=== PATIENT | male | born 1950 | race Caucasian/White ===

== ENCOUNTER 2021-10-16 17:51 | Inpatient (IN) | payer MEDICARE, OTHER ==
[~2021-10-16] VITALS: Ht 177.8 cm; Wt 71.2 kg
--- NOTE | 2021-10-16 17:55 | NUR ---
[facility],WORSENING SOB X 45 MINUTES,ON CPAP UPON ARRIVAL. PLACED COMFORTABLY IN BED. PATIENT CAME ALREADY ATTACHED TO CPAP. WITH AUTOMATIC ATRIAL DEFIBRILLATOR ON LEFT CHEST.WITH IV CANNULA G18 ON LEFT AC. PATIENT IS ON RESPIRATORY DISTRESS. ATTACHED TO MONITOR. ATTACHED TO BIPAP. WILL CONTINUE TO MONITOR VITALS.
[2021-10-16] MEDS ORDERED: NTG 50 MG/D5W250 ML BOTTL 250 ML IV ONE ×2 (18:00→18:04)
[2021-10-16] MEDS ORDERED: ENALAPRILAT DIHYD. (2.5MG/2ML) 1.25 MG/ML VIAL IV ONE (18:00)
--- NOTE | 2021-10-16 18:00 | NUR ---
CXR PORTABLE DONE AT BEDSIDE.
[2021-10-16] MEDS ORDERED: ENALAPRILAT INJ (1.25 MG/ML) 1.25 MG/ML VIAL IV ONE (18:04)
[2021-10-16] MEDS ORDERED: CARV3.122 PO (18:09)
[2021-10-16] MEDS ORDERED: POTA10TA10 PO (18:09)
[2021-10-16] MEDS ORDERED: ATOR40TA PO (18:09)
[2021-10-16] MEDS ORDERED: FAMO20TA8 PO (18:09)
[2021-10-16] MEDS ORDERED: ASPI-1420 PO (18:09)
[2021-10-16] MEDS ORDERED: ENOX30DI SQ (18:09)
[2021-10-16] MEDS ORDERED: POLY17PO4 PO (18:09)
[2021-10-16] MEDS ORDERED: NITR0.4T48 SL (18:09)
[2021-10-16] MEDS ORDERED: ALPR0.255 PO (18:09)
[2021-10-16] MEDS ORDERED: CLOP75TA15 PO (18:09)
[2021-10-16] MEDS ORDERED: FURO40TA5 PO (18:09)
[2021-10-16] MEDS ORDERED: LOSA25TA27 PO (18:09)
[2021-10-16] MEDS ORDERED: TAMS-12 PO (18:09)
[2021-10-16] MEDS ORDERED: DIGO125T PO (18:09)
--- NOTE | 2021-10-16 18:15 | NUR ---
COVID SWAB DONE AND SENT TO LAB
[2021-10-16 18:17] LABS: BASOPHILS # (AUTO) 0.1 K/uL (0.0-0.2); EOSINOPHILS % (AUTO) 5.4 % (0.0-6.0); HEMATOCRIT 45 % (39-51); HEMOGLOBIN 15.2 g/dL (13.5-17.5); LYMPHOCYTES # (AUTO) 3.5 K/uL (0.8-4.8); MEAN CORPUSCULAR HGB CONC 34 g/dl (31.0-36.0); MEAN CORPUSCULAR VOLUME 91 fL (80-96); MONOCYTES # (AUTO) 1.2 K/uL (0.1-1.30); MONOCYTES % (AUTO) 11.8 % (2.0-12.0); NEUTROPHILS # (AUTO) 5.2 K/uL (1.8-8.9); NEUTROPHILS % (AUTO) 48.8 % (43.0-81.0); PLATELET COUNT (AUTO) 201 K/uL (150-450); RED BLOOD CELL COUNT(AUTO) 4.92 MIL/uL (4.5-6.0); WHITE BLOOD COUNT (AUTO) 10.6 K/uL (4.3-11.0)
--- NOTE | 2021-10-16 18:30 | NUR ---
DR. BOCANEGRA MADE AWARE. HE SAID TO HOLD THE DRIP. HR 81bpm, SPO2 98%.
--- NOTE | 2021-10-16 18:30 | NUR ---
NITROGLYCERIN DRIP ORDERED NOT STARTED. VS BP 97/57mmHg.
[2021-10-16 18:32] LABS: CALCIUM, SERUM 8.9 mg/dL (8.5-10.1); CARBON DIOXIDE 27 mmol/L (21-32); CHLORIDE 103 mmol/L (98-107); CREATININE 1.6 mg/dL (0.6-1.3); GLUCOSE 190 mg/dL (74-106); POTASSIUM 3.8 mmol/L (3.5-5.1); SODIUM SERUM 138 mmol/L (136-145); UREA NITROGEN, BLOOD 28 mg/dL (7-18)
--- NOTE | 2021-10-16 18:36 | NUR ---
BLOOD DRAWN AND SENT TO LAB
[2021-10-16 18:45] LABS: ALANINE AMINOTRANSFERASE 20 U/L (12-78); ALBUMIN 3.5 g/dL (3.4-5.0); ALKALINE PHOSPHATASE 158 U/L (46-116); ASPARTATE AMINOTRANSFERASE 17 U/L (15-37); BILIRUBIN,DIRECT 0.1 mg/dL (0.0-0.2); BILIRUBIN,TOTAL 0.5 mg/dL (0.2-1.0); TOTAL PROTEIN, SERUM 7.9 g/dL (6.4-8.2)
[2021-10-16] MEDS ORDERED: ENOXAPARIN SODIUM 80 MG/0.8 ML DISP.SYRIN SQ ONE ×3 (19:00→23:30)
--- NOTE | 2021-10-16 19:16 | NUR ---
PATIENT IS BEING DIFFICULT. HE SAID HE WANTS TO DEFECATE, OFFERED HIM BEDPAN BUT REFUSED. HE WANTS TO USE THE BEDSIDE COMMODE. EXPLAINED TO PATIENT THAT VITALS AND BP IS NOT STABLE AT THE MOMENT. HE NEEDS TO USE BEDPAN IF HE WANTS TO DO IT NOW. BP 93/50mmHg
[2021-10-16 19:24] LABS: ABG BASE EXCESS -1.2 mmol/L; ABG PCO2 39.7 mmHg (35.0-45.0); ABG PH 7.391 (7.350-7.450); ABG PO2 164.3 mmHg (75.0-100.0); COHb 3.3 % (0.5-1.5); MetHb 0.3 % (0.0-1.5); O2Hb 95.2 % (94.0-97.0); SITE, ABG Right Brachial; VENT MODE, BG S/T 16 15/5 50%
--- NOTE | 2021-10-16 20:21 | NUR ---
TROP [id number]
--- NOTE | 2021-10-16 20:24 | NUR ---
PATIENT WAS WEANED OFF FROM THE BIPAP, HOWEVER HE'S REFUSING TO BE ON SUPPLEMENTAL O2 EITHER VIA NASAL CANULA OR MASK. PATIENT IS HOLDING O2 SAT OF 90-95% ON R/A AT THIS TIME, WILL CONTINUE TO MONITOR
--- NOTE | 2021-10-16 20:54 | NUR ---
OPAL COLEY ([facility]) [phone]
--- NOTE | 2021-10-16 21:10 | NUR ---
REPORT GIVEN TO RAQUEL ACE
--- NOTE | 2021-10-16 21:35 | NUR ---
DR BOCANEGRA AT THE BED SIDE SPEAKING TO THE PATIENT
--- NOTE | 2021-10-16 21:45 | NUR ---
STUDIO OWNER NOTES PT ARRIVED VIA GURNEY ACCOMPANIED BY RN AND EMT @ 0117. AOx4, ABLE TO MAKE NEEDS KNOWN. ON SIMPLE MASK FOR 4LPM AND TOLERATING WELL. NO SOB NOTED. NO S/SX OF RESPIRATORY DISTRESS NOTED. TELE MONITOR ON. IV ACCESS IN LAC #18G. IV IS INTACT, PATENT, AND FLUSHING WELL. SAFETY PRECAUTIONS IN PLACE: BED IN LOWEST, LOCKED POSITION, SIDERAILS UPx2, AND BRAKES ON. TABLE AND CALL LIGHT WITHIN REACH. WILL CONTINUE TO MONITOR.
--- NOTE | 2021-10-16 22:23 | NUR ---
TRANSFERRED PATIENT TO [facility] VIA STRETCHER.
[2021-10-16 22:45] VITALS: BP 124/71
[2021-10-16] MEDS ORDERED: ALPRAZOLAM 0.25 MG TABLET PO PRN (23:30)
[2021-10-16] MEDS ORDERED: ACETAMINOPHEN 325 MG TABLET PO PRN (23:30)
[2021-10-16] MEDS ORDERED: ONDANSETRON HCL/PF 4 MG/2 ML VIAL IVP PRN (23:30)
--- NOTE | 2021-10-17 00:17 | NUR ---
RN NOTES PT WANTS TO AMBULATE AROUND UNIT. EXPLAINED TO PATIENT THAT HE HAS SHORTNESS OF BREATH AND HE SHOULD NOT BE WALKING. PT DID NOT LISTEN AND STILL WALKS AROUND. 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
[2021-10-17] MEDS ORDERED: FUROSEMIDE 40 MG/4 ML VIAL IV ONE (00:30)
--- NOTE | 2021-10-17 03:40 | NUR ---
0340 Critical troponin result 1647 reported to JOHN Garcia with no order given. Patient currently on Lovenox per pharmacy dosing. He's sleeping at this time. No complain of chest pain.
--- NOTE | 2021-10-17 06:47 | NUR ---
RN CLOSING NOTES PT IN BED, ASLEEP, AWAKENS TO VERBAL STIMULI. AOx4, ABLE TO MAKE NEEDS KNOWN. ON SIMPLE MASK FOR 4LPM AND TOLERATING WELL. NO SOB NOTED. NO S/SX OF RESPIRATORY DISTRESS NOTED. TELE MONITOR DETECTS SR WITH BBB AND V-PACING. IV ACCESS IN LAC #18G. IV IS INTACT, PATENT, AND FLUSHING WELL. ALL ORDERS CARRIED OUT. ALL NEEDS MET. PT KEPT CLEAN AND DRY. SAFETY PRECAUTIONS IN PLACE: BED IN LOWEST, LOCKED POSITION, SIDERAILS UPx2, AND BRAKES ON. TABLE AND CALL LIGHT WITHIN REACH. WILL ENDORSE TO ONCOMING SHIFT FOR KIA.
--- NOTE | 2021-10-17 07:20 | NUR ---
RN NOTE RECEIVED PATIENT IN BED RESTING ALERT ORIENTED X4 VERBALLY RESPONSIVE ON 4L OXYGEN VIA SIMPLE MASK O2:93% IV SITE IS ON LEFT AC INTACT PATENT,CONTINET BOWEL/BLADDER SAFETY MEASURE IMPLEMENT BED IN LOW POSITION AND LOCKED,HEAD OF THE BED ELEVATED,CONTINUE TO MONITOR.
[2021-10-17] MEDS: FUROSEMIDE 40 MG/4 ML VIAL IV SCH ×3 (08:00→12:13)
[2021-10-17 08:28] LABS: BASOPHILS # (AUTO) 0.1 K/uL (0.0-0.2); BASOPHILS % (AUTO) 0.6 % (0.0-2.0); EOSINOPHILS % (AUTO) 3.1 % (0.0-6.0); HEMATOCRIT 38 % (39-51); HEMOGLOBIN 12.9 g/dL (13.5-17.5); LYMPHOCYTES # (AUTO) 2.1 K/uL (0.8-4.8); LYMPHOCYTES % (AUTO) 27.3 % (20.0-44.0); MEAN CORPUSCULAR HGB CONC 34 g/dl (31.0-36.0); MEAN CORPUSCULAR VOLUME 91 fL (80-96); MONOCYTES # (AUTO) 1.1 K/uL (0.1-1.30); MONOCYTES % (AUTO) 13.8 % (2.0-12.0); NEUTROPHILS # (AUTO) 4.3 K/uL (1.8-8.9); NEUTROPHILS % (AUTO) 55.2 % (43.0-81.0); PLATELET COUNT (AUTO) 153 K/uL (150-450); RED BLOOD CELL COUNT(AUTO) 4.19 MIL/uL (4.5-6.0); WHITE BLOOD COUNT (AUTO) 7.9 K/uL (4.3-11.0)
[2021-10-17] MEDS: CARVEDILOL 3.125 MG TABLET PO SCH ×2 (09:00→17:00)
--- NOTE | 2021-10-17 09:00 | NUR ---
RN NOTE BP 91/50 HR 71 COREG 3.125 NOT GIVEN AT 0900 CONTINUE TO MONITOR.
[2021-10-17] MEDS: ASPIRIN EC 81 MG TABLET.DR PO SCH (09:04)
[2021-10-17] MEDS: CLOPIDOGREL BISULFATE 75 MG TABLET PO SCH (09:04)
[2021-10-17] MEDS: DIGOXIN 0.125 MG TABLET PO SCH (09:04)
[2021-10-17] MEDS: FAMOTIDINE (20 MG) 20 MG TABLET PO SCH ×2 (09:04→21:22)
[2021-10-17] MEDS: TAMSULOSIN 0.4 MG CAP.SR.24H PO SCH (09:04)
[2021-10-17] MEDS: ENOXAPARIN SODIUM 80 MG/0.8 ML DISP.SYRIN SQ SCH ×2 (09:05→21:24)
[2021-10-17] MEDS ORDERED: IPRATROPIUM NEB FS 0.5 MG/2.5 ML AMPUL.NEB NEB PRN (09:30)
[2021-10-17 09:41] LABS: BILIRUBIN,TOTAL 0.6 mg/dL (0.2-1.0); CALCIUM, SERUM 8.9 mg/dL (8.5-10.1); CREATININE 1.3 mg/dL (0.6-1.3); POTASSIUM 3.6 mmol/L (3.5-5.1)
[2021-10-17 09:42] LABS: ALBUMIN 3.1 g/dL (3.4-5.0); MAGNESIUM 1.8 mg/dL (1.8-2.4); TOTAL PROTEIN, SERUM 6.3 g/dL (6.4-8.2)
[2021-10-17 09:45] LABS: ABG OXYGEN SATURATION 98.7 % (92.0-98.5); ABG PCO2 34.3 mmHg (35.0-45.0); ABG PH 7.467 (7.350-7.450); ABG PO2 138.7 mmHg (75.0-100.0); AaDO2 135.9 mmHg; COHb 1.3 % (0.5-1.5); MetHb 0.2 % (0.0-1.5); O2Hb 97.2 % (94.0-97.0); SITE, ABG Right Radial; VENT MODE, BG SIMPLE MASK
[2021-10-17 10:13] LABS: PHOSPHORUS 3.7 mg/dL (2.5-4.9)
[2021-10-17 14:35] LABS: CHOLESTEROL 153 mg/dL (<200); HDL CHOLESTEROL 61 mg/dL (40-60); LDL 82 mg/dL (0-99); TRIGLYCERIDES 42 mg/dL (30-150)
[2021-10-17] MEDS ORDERED: POLYETHYLENE GLYCOL 3350 17 GM POWD.PACK PO PRN (16:30)
--- NOTE | 2021-10-17 17:00 | NUR ---
RN NOTE BP IS 91/60 HR 60 GOREG 3.125MG NOT GIVEN AT 1700 CONTINUE TO MONITOR.
--- NOTE | 2021-10-17 18:27 | NUR ---
RN NOTE PATIENT REMAINS ALERT ORIENTED X4 VERBALLY RESPONSIVE ON 3L OXYGEN VIA NASAL CANNULA O2:98% NO SOB NOTA CUTE DISTRESS NOTED IV SITE IS ON LEFT AC INTACT PATENT ENDORSE NEXT COMING SHIFT FOR CONTINUATION OF CARE.
--- NOTE | 2021-10-17 19:35 | NUR ---
RN OPENING NOTES RECEIVED PT SITTING ON THE CHAIR, AWAKE, A/Ox4 AND VERBALLY RESPONSIVE. ABLE TO MAKE NEEDS KNOWN. ON SIMPLE MASK FOR 4L/M AND TOLERATING WELL. BREATHING EVEN AND UNLABORED. IV ACCESS IN LAC #18G. INTACT AND PATENT. NO S/S OF INFILTRATIONS. NO C/O PAIN OR DISCOMFORT. NO ACUTE DISTRESS. ALL SAFETY MEASURES IN PLACE. BED IN LOWEST POSITION AND LOCKED. SIDERAILS UP X2, PLACE CALL LIGHT WITH IN REACH. WILL CONTINUE TO MONITOR
[2021-10-17 20:00] VITALS: BP 109/64
[2021-10-17] MEDS: ATORVASTATIN 40 MG TABLET PO SCH (21:22)
--- NOTE | 2021-10-18 00:04 | NUR ---
RN NOTES: PT STRONGLY REFUSED TO TAKE HIS VITAL SIGN AT 12AM. EXPLAINED THE RISK AND BENEFITS BUT REFUSED, MENTIONED DON'T WAKE ME UP TO CHECK VITAL SIGNS. WILL CONTINUE TO MONITOR
[2021-10-18 04:00] VITALS: BP 94/58
--- NOTE | 2021-10-18 06:38 | NUR ---
RN CLOSING NOTES PATIENT IN BED SLEEPING, BUT EASILY AROUSABLE, A/Ox4 AND VERBALLY RESPONSIVE. ABLE TO MAKE NEEDS KNOWN. ON SIMPLE MASK FOR 4L/M AND TOLERATING WELL. O2 SAT 96%. HAS EPISODES OF REMOVING MASK. BREATHING EVEN AND UNLABORED. IV ACCESS IN LAC #18G. INTACT AND PATENT. NO S/S OF INFILTRATIONS. NO C/O PAIN OR DISCOMFORT. NO ACUTE DISTRESS. ALL DUE MEDS GIVEN ORDERED. ALL SAFETY MEASURES IN PLACE. BED IN LOWEST POSITION AND LOCKED. SIDERAILS UP X2, PLACE CALL LIGHT WITH IN REACH. WILL ENDORSE TO MORNING SHIFT NURSE.
[2021-10-18 07:07] LABS: BASOPHILS # (AUTO) 0.1 K/uL (0.0-0.2); BASOPHILS % (AUTO) 0.8 % (0.0-2.0); EOSINOPHILS % (AUTO) 4.4 % (0.0-6.0); HEMATOCRIT 37 % (39-51); HEMOGLOBIN 12.8 g/dL (13.5-17.5); LYMPHOCYTES % (AUTO) 29.9 % (20.0-44.0); MEAN CORPUSCULAR HGB CONC 34 g/dl (31.0-36.0); MEAN CORPUSCULAR VOLUME 91 fL (80-96); MONOCYTES # (AUTO) 0.9 K/uL (0.1-1.30); MONOCYTES % (AUTO) 13.9 % (2.0-12.0); NEUTROPHILS # (AUTO) 3.4 K/uL (1.8-8.9); PLATELET COUNT (AUTO) 145 K/uL (150-450); WHITE BLOOD COUNT (AUTO) 6.6 K/uL (4.3-11.0)
--- NOTE | 2021-10-18 07:16 | NUR ---
RN OPENING NOTES RECEIVED PT ASLEEP ON THE BED. ON SIMPLE MASK AT 4L PER MINUTE AND TOLERATING WELL. BREATHING EVEN AND UNLABORED. IV ACCESS IN LAC #18G. INTACT AND PATENT. NO S/S OF INFILTRATIONS. NO C/O PAIN OR DISCOMFORT. NO ACUTE DISTRESS. ALL SAFETY MEASURES IN PLACE. BED IN LOWEST POSITION AND LOCKED. SIDERAILS UP X2, PLACE CALL LIGHT WITH IN REACH.
[2021-10-18 07:25] LABS: BILIRUBIN,TOTAL 0.7 mg/dL (0.2-1.0); CREATININE 1.2 mg/dL (0.6-1.3); PHOSPHORUS 3.4 mg/dL (2.5-4.9); POTASSIUM 3.8 mmol/L (3.5-5.1); TOTAL PROTEIN, SERUM 6.5 g/dL (6.4-8.2)
--- NOTE | 2021-10-18 07:25 | NUR ---
RN NOTE RECEIVED CRITICAL LAB OF TROPONIN 1406. YESTERDAYS TROPONIN READINGS WERE [id number]. PATIENT IS CURRENTLY ON ASPIRIN AND LOVENOX DR HOLDEN MADE AWARE NO FURTHER ORDERS.
[2021-10-18 08:00] VITALS: BP 129/80
[2021-10-18] MEDS: CARVEDILOL 3.125 MG TABLET PO SCH ×4 (09:00→22:14)
[2021-10-18] MEDS: DIGOXIN 0.125 MG TABLET PO SCH (09:12)
[2021-10-18] MEDS: TAMSULOSIN 0.4 MG CAP.SR.24H PO SCH (09:13)
[2021-10-18] MEDS: FAMOTIDINE (20 MG) 20 MG TABLET PO SCH ×2 (09:13→21:46)
[2021-10-18] MEDS: FUROSEMIDE 40 MG/4 ML VIAL IV SCH ×4 (09:13→16:06)
[2021-10-18] MEDS: ASPIRIN EC 81 MG TABLET.DR PO SCH (09:13)
[2021-10-18] MEDS: POTASSIUM CHLORIDE 20 MEQ TAB.PRT.SR PO SCH ×3 (09:13→11:35)
[2021-10-18] MEDS: CLOPIDOGREL BISULFATE 75 MG TABLET PO SCH (09:13)
[2021-10-18] MEDS: ENOXAPARIN SODIUM 40 MG/0.4 ML DISP.SYRIN SQ SCH (10:29)
[2021-10-18 11:09] LABS: CALCIUM, SERUM 9.5 mg/dL (8.5-10.1)
[2021-10-18 11:10] LABS: MAGNESIUM 2.1 mg/dL (1.8-2.4)
--- NOTE | 2021-10-18 11:21 | NUR ---
RN NOTE DR. PADILLA Hemphill AT PATIENTS BEDSIDE RECEIVED ORDER TO PLACE RX FOR NICOTINE PATCH 14MG TD QDAILY.ORDERS PLACED
[2021-10-18] MEDS: NICOTINE PATCH (14MG) 14 MG PATCH.TD24 TD SCH (11:35)
[2021-10-18 12:00] VITALS: BP 110/70
--- NOTE | 2021-10-18 12:00 | NUR ---
RN NOTE PATIENT REFUSES TO USE OUR VITALS SIGN MACHINE, PATIENT HAS HIS OWN BLOOD PRESSURE/HEART RATE MACHINE AND WISHES TO USE HIS OWN. PER PATIENT HE RATHER USE HIS OWN IT IS MORE ACCURATE. PATIENT CALLED RN TO ROOM TO INFORM A HEART RATE OF 44BPM ON HIS MACHINE. INFORMED PATIENT HE IS ON A SOCIAL MEDIA EXECUTIVE AND CURRENT READING 78BPM. EXPLAINED TO PATIENT HE IS ON CONTINUOUS CARDIAC MONITORING. NO FURTHER QUESTIONS.
--- NOTE | 2021-10-18 12:42 | NUR ---
RN NOTE RECIEVED ORDER FROM DR CAUSEY TO PLACE ORDER FOR PSYCH CONSULT. ORDERS FOLLOWED
--- NOTE | 2021-10-18 13:06 | NUR ---
PER DR. OLIVO SHE WILL SEE PATIENT IN AM.
--- NOTE | 2021-10-18 14:00 | NUR ---
RN NOTE PATIENTS NICOTINE PATCH WAS RETURNED TO [facility] DUE TO PATIENT DECIDING HE DID NOT WANT IT THROUGH OUT THE DAY.
[2021-10-18 16:00] VITALS: BP 96/62
--- NOTE | 2021-10-18 16:00 | NUR ---
RN NOTE PATIENTS BLOOD PRESSURE NOTED TO BE 94/62 MANUAL READING WITH HR OF 84. PATIENT HAD THE LAST DOSE OF LASIX DUE. INFORMED DR HOLDEN OF READING PER DOCTOR HOLD MEDICATION. ORDERS FOLLOWED.
--- NOTE | 2021-10-18 17:00 | NUR ---
RN NOTE PATIENTS 1700 COREG MEDICATION NOT ADMINISTERED PATIENT RECEIVED LASIX AND WAS CONCERN OF BLOOD PRESSURE DROPPING. PATIENT DISCUSSED HOLD MEDICATION FOR NOW
--- NOTE | 2021-10-18 17:35 | NUR ---
RN NOTE PER PATIENTS REQUEST BLOOD PRESSURE WAS TAKEN AGAIN WITH READING OF 105/75 HR 65. PATIENT IS REQUESTING LAST DOSE OF LASIX
[2021-10-18] MEDS ORDERED: FUROSEMIDE 40 MG/4 ML VIAL IV SCH (18:00)
--- NOTE | 2021-10-18 18:36 | NUR ---
RN NOTE PATIENTS IV NOTED TO BE INFILTRATED, PER PATIENT HE IS A HARD DRAW AND DISCUSSED ICU EXPERIENCED NURSE WOULD BE APPROPRIATE FOR PLACEMENT, ICU CHARGE NURSE MADE AWARE.
--- NOTE | 2021-10-18 18:41 | NUR ---
RN CLOSING NOTES PATIENT SITTING IN CHAIR A/Ox4 AND VERBALLY RESPONSIVE. ABLE TO MAKE NEEDS KNOWN. PATIENT IS ON ROOM AIR CURRENTLY O2 SAT 96%. PER PATENTS REQUEST HE WANTS FACE MASK AT BED SIDE FOR WHEN HE FEELS SOB DURING MY SHIT PATIENT DID NOT REPORT SOB. O2 SAT 96%. PATIENTS LEFT ARM IV SITE NOTED TO BE INFILTRATED PENDING PLACEMENT FROM A ICU NURSE, ICU CHARGE NURSE MADE AWARE. CURRENTLY PATIENT HAS NO C/O PAIN OR DISCOMFORT. NO ACUTE DISTRESS. ALL SAFETY MEASURES IN PLACE. BED IN LOWEST POSITION AND LOCKED. SIDE RAILS UP X2, PLACE CALL LIGHT WITH IN REACH. WILL ENDORSE TO IGNITION SPECIALIST NURSE.
--- NOTE | 2021-10-18 19:30 | NUR ---
BLACK TOP ROLLER OPENING NOTES RECEIVED PATIENT SITTING IN CHAIR, A/O x 4, VERBALLY RESPONSIVE. ABLE TO MAKE NEEDS KNOWN. ON ROOM AIR , TOLERATING WELL, SATING AT 98%. PER PATIENT'S REQUEST, HE WANTS FACE MASK AT BEDSIDE FOR WHEN HE FEELS SOB DURING MY SHIFT. PT NO IV ACCESS, PENDING PLACEMENT FROM AN ICU NURSE, PER PATIENT'S REQUEST. ICU CHARGE NURSE MADE AWARE. CURRENTLY PATIENT HAS NO C/O PAIN OR DISCOMFORT. PT ALSO USES HIS OWN BP MACHINE TO TAKE HIS BP/PULSE. ALL SAFETY MEASURES IN PLACE. BED IN LOWEST POSITION AND LOCKED. SIDE RAILS UP X2, CALL LIGHT WITHIN REACH. WILL CONTINUE TO MONITOR.
[2021-10-18 20:00] VITALS: BP 134/71
[2021-10-18] MEDS: ATORVASTATIN 40 MG TABLET PO SCH (21:47)
--- NOTE | 2021-10-18 22:20 | NUR ---
RN NOTE PT ASKED FOR HIS COREG MEDS TO BE GIVEN, WHICH WAS INITIALLY PUT ON HOLD BY THE PT TODAY AT 1700 SINCE HE SAID HE DIDN'T WANT TO TAKE IT AFTER GETTING LASIX. AT 2200 TODAY, HE WANTED TO TAKE IT AFTER HIS BP REGISTERED AT 134/71 WITH A PULSE OF 83. ASKED CHARGE NURSE HDAVAL IF I COULD GIVE IT, AND SAID OK.
[2021-10-19] VITALS: BP 115/71
[2021-10-19 04:00] VITALS: BP 125/75
[2021-10-19 07:25] LABS: BASOPHILS % (AUTO) 0.8 % (0.0-2.0); EOSINOPHILS % (AUTO) 4.5 % (0.0-6.0); HEMATOCRIT 38 % (39-51); LYMPHOCYTES # (AUTO) 1.6 K/uL (0.8-4.8); LYMPHOCYTES % (AUTO) 26.6 % (20.0-44.0); MEAN CORPUSCULAR HGB CONC 34 g/dl (31.0-36.0); MEAN CORPUSCULAR VOLUME 91 fL (80-96); MONOCYTES % (AUTO) 16.6 % (2.0-12.0); NEUTROPHILS % (AUTO) 51.5 % (43.0-81.0); PLATELET COUNT (AUTO) 153 K/uL (150-450); RED BLOOD CELL COUNT(AUTO) 4.18 MIL/uL (4.5-6.0); WHITE BLOOD COUNT (AUTO) 5.9 K/uL (4.3-11.0)
--- NOTE | 2021-10-19 07:30 | NUR ---
RN NOTES PT FOUND SEMI FOWLERS DISPLAYING NO S/S OF DISTRESS, PATIENT ENDORSES NO PAIN AND IS BREATHING EVEN AND UNLABORED ON RA. SIMPLE MASK WITHIN REACH TO USE PRN. NO IV ACCESS, MD AWARE. PT VERBALIZED UNDERSTANDING FOR USE OF CALL LIGHT. RN WILL MONITOR AND TREAT THROUGHOUT SHIFT. SAFETY MEASURES IN PLACE, BED LOCKED AND IN LOWEST POSITION, SIDE RAILS UPX2, CALL LIGHT WITHIN REACH, PT INSTRUCTED TO CALL FOR ASSISTANCE.
[2021-10-19 07:45] LABS: ALBUMIN 3.1 g/dL (3.4-5.0); BILIRUBIN,TOTAL 0.5 mg/dL (0.2-1.0); CREATININE 1.3 mg/dL (0.6-1.3); PHOSPHORUS 3.3 mg/dL (2.5-4.9); POTASSIUM 3.7 mmol/L (3.5-5.1); TOTAL PROTEIN, SERUM 6.7 g/dL (6.4-8.2)
--- NOTE | 2021-10-19 07:46 | NUR ---
CASINO FLOORPERSON CLOSING NOTES RECEIVED PATIENT SITTING IN CHAIR, A/O x 4, VERBALLY RESPONSIVE. ABLE TO MAKE NEEDS KNOWN. ON ROOM AIR , TOLERATING WELL, SATING AT 98%. PER PATIENT'S REQUEST, HE WANTS FACE MASK AT BEDSIDE FOR WHEN HE FEELS SOB DURING MY SHIFT. PT NO IV ACCESS, PENDING PLACEMENT FROM AN ICU NURSE, PER PATIENT'S REQUEST. ICU CHARGE NURSE MADE AWARE. CURRENTLY PATIENT HAS NO C/O PAIN OR DISCOMFORT. PT ALSO USES HIS OWN BP MACHINE TO TAKE HIS BP/PULSE. ALL DUE MEDS GIVEN. ALL SAFETY MEASURES FOLLOWED: BED IN LOWEST POSITION AND LOCKED. SIDE RAILS UP X2, CALL LIGHT WITHIN REACH. WILL CONTINUE TO MONITOR.
[2021-10-19 08:00] VITALS: BP 101/62
[2021-10-19 08:36] LABS: CALCIUM, SERUM 9.5 mg/dL (8.5-10.1); MAGNESIUM 2.1 mg/dL (1.8-2.4)
[2021-10-19] MEDS: NICOTINE PATCH (14MG) 14 MG PATCH.TD24 TD SCH (09:00)
[2021-10-19] MEDS: DIGOXIN 0.125 MG TABLET PO SCH (09:33)
[2021-10-19] MEDS: TAMSULOSIN 0.4 MG CAP.SR.24H PO SCH (09:33)
[2021-10-19] MEDS: FAMOTIDINE (20 MG) 20 MG TABLET PO SCH (09:34)
[2021-10-19] MEDS: ASPIRIN EC 81 MG TABLET.DR PO SCH (09:34)
[2021-10-19] MEDS: CLOPIDOGREL BISULFATE 75 MG TABLET PO SCH (09:34)
[2021-10-19] MEDS: ENOXAPARIN SODIUM 40 MG/0.4 ML DISP.SYRIN SQ SCH (09:35)
[2021-10-19 12:00] VITALS: BP 102/57
--- NOTE | 2021-10-19 16:00 | NUR ---
DISCHARGE PT DISCHARGED BACK TO SNF, RN GAVE REPORT TO EMT IN RIG 19, ALL QUESTIONS ANSWERED. RN PROVIDED EMT WITH VS. PT IS A&OX4, ENDORSING NO PAIN AND IS BREATHING EVEN AND UNLABORED ON RA. PT ABLE TO AMBULATE FROM BED TO [facility] W/O ASSISTANCE. BELONGINGS REVIEWED AND WITH PT. ID BAND REMOVED. TELEMETRY BOX REMOVED. PT ENDORSED TO [facility] FOR TRANSPORT.
[2021-10-19 16:03] VITALS: BP 119/70
[2021-10-19] MEDS: CARVEDILOL 3.125 MG TABLET PO SCH (16:03)
== END 2021-10-19 16:14 | DRG 280 ==
LOC: ER 17:55 → TELE1 20:46
PROVIDERS: ADMIT Nurse Practitioner Acute Care
PROC: 5A09357 Assistance with Respiratory Ventilation, Less than 24 Consecutive Hours, Continuous Positive Airway Pressure (ICD-10-PCS; principal; 2021-10-16)
DX: I11.0 Hypertensive heart disease with heart failure (principal); I21.4 Non-ST elevation (NSTEMI) myocardial infarction; J96.01 Acute respiratory failure with hypoxia; N17.0 Acute kidney failure with tubular necrosis; I50.21 Acute systolic (congestive) heart failure; J84.9 Interstitial pulmonary disease, unspecified; Z95.810 Presence of automatic (implantable) cardiac defibrillator; I25.2 Old myocardial infarction; Z20.822 Contact with and (suspected) exposure to COVID-19; I42.9 Cardiomyopathy, unspecified; N40.0 Benign prostatic hyperplasia without lower urinary tract symptoms; F41.9 Anxiety disorder, unspecified; G47.00 Insomnia, unspecified; E78.5 Hyperlipidemia, unspecified; Z95.1 Presence of aortocoronary bypass graft; Z79.01 Long term (current) use of anticoagulants; Z95.5 Presence of coronary angioplasty implant and graft; Z79.02 Long term (current) use of antithrombotics/antiplatelets; Z79.899 Other long term (current) drug therapy; Z79.82 Long term (current) use of aspirin; Z86.74 Personal history of sudden cardiac arrest; Z87.891 Personal history of nicotine dependence; I25.10 Atherosclerotic heart disease of native coronary artery without angina pectoris; J44.9 Chronic obstructive pulmonary disease, unspecified; I95.9 Hypotension, unspecified; E88.09 Other disorders of plasma-protein metabolism, not elsewhere classified; F43.20 Adjustment disorder, unspecified; R73.9 Hyperglycemia, unspecified
CPT/HCPCS: 36415; 36600; 71045-TC; 80048-TC; 80053-TC; 80061-TC; 80076-TC; 82803-TC; 83735-TC; 83880; 84100-TC; 84484-TC; 85025-TC; 85730-TC; 87081-TC; 93307-TC; C9803; G0378; J1650; J1940; J3490